=== PATIENT | male | born 1945 | race Caucasian/White ===

== ENCOUNTER 2017-04-07 11:27 | Emergency (ER) | payer MEDICARE ==
[~2017-04-07] VITALS: Ht 177.8 cm; Wt 78.5 kg
[2017-04-07 11:28] VITALS: BP 144/85; PULSE 91; RESP 18; TEMP 98.1; O2SAT 97
[2017-04-07] MEDS ORDERED: SODIUM CHLOR 0.9% 1000 ML INJ 1,000 ML IV SCH (11:47)
--- NOTE | 2017-04-07 11:53 | PD ---
HPI Chief Complaint: Abdominal Pain Time Seen by Provider: 11:41 Travel History International Travel<30 days: No Contact w/Intl Traveler<30days: No Traveled to known affect area: No History of Present Illness HPI 71-year-old male presents to the emergency department for evaluation of left abdominal pain that started on Saturday at 10 PM, 2 days ago. Patient states that bending over, movement, coughing will exacerbate the pain. Resting and staying still will help alleviate the pain. Patient states severity is moderate. Patient denies any history of similar pain in the past. He denies any chest pain or shortness breath. No nausea, vomiting, diarrhea, constipation. His last bowel movement was this morning and it was normal for him. No blood in his stool. Patient states he had a fever last night and this morning 100.4. He did not take anything for his fever. He does report a history of nephrolithiasis many years ago, but states this feels different. He also reports dark urine with a small amount of dysuria. Patient reports no chronic medical problems and takes no prescribed medications. No previous abdominal surgeries. [facility] Social History Alcohol Use: No Tobacco Use: No Substance Use: No Allergies-Medications (Allergen,Severity, Reaction): Coded Allergies: No Known Allergies (Unverified , 04/07/17) Reported Meds & Prescriptions Reported Meds & Active Scripts Active Cipro (Ciprofloxacin HCl) 500 Mg Tab 500 Mg PO BID 10 Days Flagyl (Metronidazole) 500 Mg Tab 500 Mg PO TID 10 Days Review of Systems Except as stated in HPI: all other systems reviewed are Neg Physical Exam Narrative GENERAL: Well-nourished, well-developed male patient, afebrile. SKIN: Focused skin assessment warm/dry. HEAD: Normocephalic. Atraumatic. EYES: No scleral icterus. No injection or drainage. NECK: Supple, trachea midline. No JVD or lymphadenopathy. CARDIOVASCULAR: Regular rate and rhythm without murmurs, gallops, or rubs. RESPIRATORY: Breath sounds equal bilaterally. No accessory muscle use. Lungs sounds are clear to auscultation. GASTROINTESTINAL: Abdomen soft and nondistended. Patient has tenderness to palpation over left lower quadrant. MUSCULOSKELETAL: No cyanosis, or edema. BACK: No obvious deformity. No CVA tenderness. Data Data Last Documented VS Vital Signs Date Time Temp Pulse Resp B/P (MAP) Pulse Ox O2 Delivery O2 Flow Rate FiO2 04/07/17 12:11 16 98 Room Air 04/07/17 11:28 98.1 91 Orders Orders Complete Blood Count With Diff (04/07/17 11:47) Comprehensive Metabolic Panel (04/07/17 11:47) Lipase (04/07/17 11:47) Prothrombin Time / Inr (Pt) (04/07/17 11:47) Act Partial Throm Time (Ptt) (04/07/17 11:47) Urinalysis - C+S If Indicated (04/07/17 11:47) Ct Abd/Pel W Iv Contrast(Rout) (04/07/17 11:47) Iv Access Insert/Monitor (04/07/17 11:47) Ecg Monitoring (04/07/17 11:47) Oximetry (04/07/17 11:47) Sodium Chlor 0.9% 1000 Ml Inj (Ns 1000 M (04/07/17 11:47) Sodium Chloride 0.9% Flush (Ns Flush) (04/07/17 12:00) Iohexol 350 Inj (Omnipaque 350 Inj) (04/07/17 13:40) Ciprofloxacin (Cipro) (04/07/17 14:45) Metronidazole (Flagyl) (04/07/17 14:45) Ed Discharge Order (04/07/17 14:46) Labs Laboratory Tests Test 04/07/17 12:15 04/07/17 12:24 White Blood Count 16.0 TH/MM3 Red Blood Count 4.88 MIL/MM3 Hemoglobin 15.1 GM/DL Hematocrit 44.5 % Mean Corpuscular Volume 91.3 FL Mean Corpuscular Hemoglobin 30.9 PG Mean Corpuscular Hemoglobin Concent 33.8 % Red Cell Distribution Width 13.4 % Platelet Count 259 TH/MM3 Mean Platelet Volume 9.5 FL Neutrophils (%) (Auto) 75.0 % Lymphocytes (%) (Auto) 16.3 % Monocytes (%) (Auto) 8.1 % Eosinophils (%) (Auto) 0.1 % Basophils (%) (Auto) 0.5 % Neutrophils # (Auto) 12.0 TH/MM3 Lymphocytes # (Auto) 2.6 TH/MM3 Monocytes # (Auto) 1.3 TH/MM3 Eosinophils # (Auto) 0.0 TH/MM3 Basophils # (Auto) 0.1 TH/MM3 CBC Comment DIFF FINAL Differential Comment Prothrombin Time 11.2 SEC Prothromb Time International Ratio 1.0 RATIO Activated Partial Thromboplast Time 32.6 SEC Blood Urea Nitrogen 13 MG/DL Creatinine 1.09 MG/DL Random Glucose 94 MG/DL Total Protein 7.9 GM/DL Albumin 3.1 GM/DL Calcium Level 8.9 MG/DL Alkaline Phosphatase 58 U/L Aspartate Amino Transf (AST/SGOT) 13 U/L Alanine Aminotransferase (ALT/SGPT) 22 U/L Total Bilirubin 0.8 MG/DL Sodium Level 137 MEQ/L Potassium Level 3.9 MEQ/L Chloride Level 101 MEQ/L Carbon Dioxide Level 25.9 MEQ/L Anion Gap 10 MEQ/L Estimat Glomerular Filtration Rate 67 ML/MIN Lipase 95 U/L Urine Color YELLOW Urine Turbidity CLEAR Urine pH 7.0 Urine Specific [place] 1.009 Urine Protein NEG mg/dL Urine Glucose (UA) NEG mg/dL Urine Ketones NEG mg/dL Urine Occult Blood SMALL Urine Nitrite NEG Urine Bilirubin NEG Urine Urobilinogen LESS THAN 2.0 MG/DL Urine Leukocyte Esterase NEG Urine RBC 1 /hpf Urine WBC LESS THAN 1 /hpf Microscopic Urinalysis Comment CULT NOT INDICATED MDM Medical Decision Making Medical Screen Exam Complete: Yes Emergency Medical Condition: Yes Medical Record Reviewed: Yes Interpretation(s) Last Impressions Abdomen/Pelvis CT 04/07/17 1147 Signed Impressions: Service Date/Time: Saturday, April 07, 2017 13:37 - CONCLUSION: 1. Moderate severity, acute uncomplicated diverticulitis of the proximal sigmoid colon. 2. Tortuous, atherosclerotic and mildly aneurysmal abdominal aorta. 3. Scoliosis and degenerative changes of the spine. Bulmaro Martinez MD Differential Diagnosis Diverticulitis versus UTI versus nephrolithiasis versus pyelonephritis versus muscle strain Narrative Course 71-year-old male presents to the emergency department for evaluation of abdominal pain that started Saturday night. CBC, CMP, lipase, PTT, PT/INR, UA are ordered and pending. CT abdomen/pelvis with IV contrast is ordered and pending. Patient is given normal saline 1 L IV bolus. He declines any pain medication at this time. CBC shows leukocytosis 16.0. CMP shows no acute abnormality. Lipase is 95. Coags show no acute abnormality. UA is negative for acute infection. CT abdomen/pelvis shows moderate severity, acute uncomplicated diverticulitis of the proximal sigmoid colon; Tortuous, atherosclerotic and mildly aneurysmal abdominal aorta; Scoliosis and degenerative changes of the spine. Patient is given a copy of his CT results. He is instructed to follow primary care physician regarding aneurysmal abdominal aorta. He'll be started on Flagyl and Cipro for diverticulitis. He verbalizes agreement and understanding. The patient was discharged in stable condition with instructions, including return instructions and follow up instructions. Diagnosis Primary Impression: Diverticulitis Referrals: Primary Care Physician call for appointment Patient Instructions: Diverticulitis (ED), Diverticulitis Diet (ED), General Instructions Additional Instructions: Take ciprofloxacin and Flagyl as directed until gone. Do not drink alcohol while taking the Flagyl. Follow-up with your primary care physician. Return to the emergency department for any acute worsening of symptoms. Med/Other Pt SpecificInfo: Prescription(s) given Scripts Ciprofloxacin (Cipro) 500 Mg Tab 500 MG PO BID for Infection for 10 Days, #20 TAB 0 Refills Prov: Pearl Scott 04/07/17 Metronidazole (Flagyl) 500 Mg Tab 500 MG PO TID for Infection for 10 Days, TAB 0 Refills Prov: Pearl Scott 04/07/17 Disposition: 01 DISCHARGE HOME Condition: Stable Pearl Scott Apr 07, 2017 11:53
[2017-04-07] MEDS ORDERED: SODIUM CHLORIDE 0.9% FLUSH 10 ML FLUSH IV FLUSH PRN (12:00)
[2017-04-07 12:11] VITALS: RESP 16; O2SAT 98
[2017-04-07 12:30] VITALS: BP 136/79; PULSE 84; RESP 18; O2SAT 97
[2017-04-07 12:36] LABS: BASOPHIL # 0.1 TH/MM3 (0-0.2); BASOPHIL % 0.5 % (0.0-2.0); EOSINOPHIL % 0.1 % (0.0-4.0); HEMATOCRIT 44.5 % (39.0-51.0); HEMO FLAGS DIFF FINAL; LYMPH % 16.3 % (9.0-44.0); LYMPHOCYTE # 2.6 TH/MM3 (1.0-4.8); MEAN CELL VOLUME 91.3 FL (80.0-100.0); MEAN CORPUSCULAR HEMOGLOBIN 30.9 PG (27.0-34.0); MEAN CORPUSCULAR HGB CONC 33.8 % (32.0-36.0); MONO % 8.1 % (0.0-8.0); PLATELET COUNT 259 TH/MM3 (150-450); RED BLOOD COUNT 4.88 MIL/MM3 (4.50-5.90); RED CELL DISTRIBUTION WIDTH 13.4 % (11.6-17.2)
[2017-04-07 12:48] LABS: APTT (PATIENT) 32.6 SEC (24.3-30.1); PROTHROMBIN TIME - PATIENT 11.2 SEC (9.8-11.6)
[2017-04-07 13:02] LABS: BLOOD, URINE SMALL (NEG); GLUCOSE,URINE NEG (NEG); KETONE, URINE NEG (NEG); NITRITE,URINE NEG (NEG); URINE COLOR YELLOW (YELLW/STRAW)
[2017-04-07 13:06] LABS: COMMENT (UR) CULT NOT INDICATED; CULTURE IF INDICATED CULT NOT INDICATED
[2017-04-07 13:08] LABS: ALT (GPT) 22 U/L (12-78); AST (GOT) 13 U/L (15-37); BICARBONATE 25.9 MEQ/L (21.0-32.0); BLOOD UREA NITROGEN 13 MG/DL (7-18); GLOMERULAR FILTRATION RATE 67 ML/MIN (>89)
[2017-04-07 13:40] LABS: ALKALINE PHOSPHATASE 58 U/L (45-117); ANION GAP 10 MEQ/L (5-15); CHLORIDE 101 MEQ/L (98-107); POTASSIUM 3.9 MEQ/L (3.5-5.1); SODIUM (NA) 137 MEQ/L (136-145); TOTAL BILIRUBIN ADULT 0.8 MG/DL (0.2-1.0)
[2017-04-07] MEDS ORDERED: IOHEXOL 350 MG/ML 10 ML VIAL (for RAD DIAG) IVCONTRAST ONE (13:40)
--- NOTE | 2017-04-07 13:58 | RADRPT ---
EXAM DATE/TIME: 04/07/2017 13:37 [place] COMPARISON: No previous studies available for comparison. INDICATIONS : Left lower abdomen pain for two days. IV CONTRAST: 72 cc Omnipaque 350 (iohexol) IV ORAL CONTRAST: No oral contrast ingested. RADIATION DOSE: 7.28 CTDIvol (mGy) ; Patient positioning MEDICAL HISTORY : None SURGICAL HISTORY : None. ENCOUNTER: Initial ACUITY: 1 day PAIN SCALE: 5/10 LOCATION: Left lower quadrant TECHNIQUE: Volumetric scanning of the abdomen and pelvis was performed. Using automated exposure control and ad justment of the mA and/or kV according to patient size, radiation dose was kept as low as reasonably achievable to obtain optimal diagnostic quality images. DICOM format image data is available electro nically for review and comparison. FINDINGS: LOWER LUNGS: The visualized lower lungs are clear. LIVER: Homogeneous density without lesion. There is no dilation of the biliary tree. No calcified gallston es. SPLEEN: Normal size without lesion. PANCREAS: Within normal limits. KIDNEYS: Normal in size and shape. There is no mass, stone or hydronephrosis. ADRENAL GLANDS: Within normal limits. VASCULAR: Atherosclerotic and mildly aneurysmal abdominal aorta, measures 3.1 cm maximum. BOWEL/MESENTERY: There is diverticulosis of the left side of the colon. An area of moderate severity diverticulitis is seen of the proximal sigmoid colon in the anterior left lower quadrant. No abscess, perforation or o bstruction. ABDOMINAL WALL: Within normal limits. RETROPERITONEUM: There is no lymphadenopathy. BLADDER: No wall thickening or mass. REPRODUCTIVE: Within normal limits. INGUINAL: There is no lymphadenopathy or hernia. MUSCULOSKELETAL: No acute bony abnormality demonstrated. Scoliosis and degenerative changes are seen in the spine. CONCLUSION: 1. Moderate severity, acute uncomplicated diverticulitis of the proximal sigmoid colon. 2. Tortuous, atherosclerotic and mildly aneurysmal abdominal aorta. 3. Scoliosis and degenerative changes of the spine. Bulmaro Martinez MD on April 07, 2017 at 13:53 Board Certified Radiologist. This report was verified electronically.
[2017-04-07 14:30] VITALS: BP 118/79; PULSE 82; RESP 18; O2SAT 98
[2017-04-07] MEDS ORDERED: METR-1 PO (14:36)
[2017-04-07] MEDS ORDERED: CIPR-9 PO (14:36)
[2017-04-07] MEDS ORDERED: CIPROFLOXACIN 500 MG TAB PO ONE (14:45)
[2017-04-07] MEDS ORDERED: metroNIDAZOLE 500 MG TAB PO ONE (14:45)
== END 2017-04-07 15:31 | disposition home or self-care (01) ==
LOC: NEPE 11:27
DX: K57.92 Diverticulitis of intestine, part unspecified, without perforation or abscess without bleeding (principal); D72.829 Elevated white blood cell count, unspecified; M41.9 Scoliosis, unspecified
CPT/HCPCS: 74177; 80053; 81001; 83690; 85025; 85610; 85730; 96360; 99285; J7030; Q9967